=== PATIENT | female | born 1990 | race American Indian/Alaskan Native ===

== ENCOUNTER 2016-12-08 21:47 | Emergency (ER) | payer OTHER ==
[2016-12-08 21:57] VITALS: BP 118/82
== END 2016-12-09 | disposition left against medical advice (07) ==
LOC: ED 21:47
DX: R51 Headache (principal); J45.909 Unspecified asthma, uncomplicated; Z86.718 Personal history of other venous thrombosis and embolism; Z88.0 Allergy status to penicillin; Z53.21 Procedure and treatment not carried out due to patient leaving prior to being seen by health care provider